=== PATIENT | female | born 1925 | race Asian ===

== ENCOUNTER 2017-01-10 13:27 | Emergency (ER) | payer OTHER ==
[~2017-01-10] VITALS: Ht 152.4 cm; Wt 70.0 kg
[~2017-01-10 13:27] MED LIST: AMLO10TA55 PO; ATOR40TA28 PO; FERR-72 PO; FURO20 PO; HYDR-2924 PO; LINA5TAB PO; LOSA25TA21 PO; METO50 PO; MONT10TA21 PO; NITR0.4T50 SL; PANT20TA PO; RANO500T3 PO; ROFL500T PO
[2017-01-10 13:42] LABS: GLUCOSE,POINT OF CARE 199 MG/DL (70-110)
[2017-01-10] MEDS ORDERED: AMLO-512 PO (13:45)
[2017-01-10] MEDS ORDERED: DSS100 PO (13:45)
[2017-01-10] MEDS ORDERED: OMEP20 PO (13:45)
[2017-01-10] MEDS ORDERED: CILO100T PO (13:45)
[2017-01-10] MEDS ORDERED: FLUT1AER IH (13:45)
[2017-01-10] MEDS ORDERED: LEVO2.5S4 PO (13:45)
[2017-01-10] MEDS ORDERED: CLOP75 PO (13:45)
[2017-01-10 15:28] LABS: BASOPHILS % (AUTO) 0.2 % (0.0-2.0); EOSINOPHILS % (AUTO) 0.8 % (1.0-6.0); HEMATOCRIT 24.2 % (36-46); HEMOGLOBIN 8.2 g/dL (12.0-16.0); LYMPHOCYTES # (AUTO) 0.8 K/uL (1.0-4.8); MEAN CORPUSCULAR HEMOGLOBIN 33.9 pg (26.0-34.0); MEAN CORPUSCULAR HGB CONC 33.8 G/dL (31.0-37.0); MEAN CORPUSCULAR VOLUME 100 fL (80-100); MONOCYTES # (AUTO) 0.6 K/uL (0.1-1.0); MONOCYTES % (AUTO) 7.2 % (2.0-9.0); NEUTROPHILS # (AUTO) 6.9 K/uL (1.8-7.7); NEUTROPHILS % (AUTO) 81.8 % (40.0-70.0); PLATELET COUNT (AUTO) 221 K/uL (150-450); RED BLOOD CELL COUNT(AUTO) 2.41 MIL/uL (4.00-5.20); RED CELL DISTRIBUTION WIDTH 16.9 % (11.5-14.5); WHITE BLOOD COUNT (AUTO) 8.5 K/uL (4.5-11.0)
[2017-01-10 15:32] LABS: ANION GAP 15 mmol/L (8-16); CALCIUM, TOTAL 8.5 mg/dL (8.8-10.5); CARBON DIOXIDE 18 mmol/L (22-29); CHLORIDE 105 mmol/L (98-107); CREATININE 2.08 mg/dL (0.60-1.30); GLOMERULAR FILTR. RATE CALC 22 mL/min (>60); POTASSIUM 5.2 mmol/L (3.5-5.1); SODIUM SERUM 138 mmol/L (136-145); UREA NITROGEN, BLOOD 33 mg/dL (7-18)
[2017-01-10 15:39] LABS: ALANINE AMINOTRANSFERASE 43 U/L (12-78); ALBUMIN 3.3 g/dL (3.4-5.0); ASPARTATE AMINOTRANSFERASE 35 U/L (15-37); BILIRUBIN,TOTAL 0.3 mg/dL (0.1-1.0); CREATINE KINASE, TOTAL 51 U/L (26-192); TOTAL PROTEIN, SERUM 7.5 g/dL (6.4-8.2)
[2017-01-10 15:53] LABS: B-TYPE NATRIURETIC PEPTIDE 430 pg/mL (0-100)
[2017-01-10 15:56] LABS: APPEARANCE,URINE CLEAR (CLEAR); GLUCOSE, URINE (UA) NEGATIVE (NEGATIVE); KETONES,URINE NEGATIVE (NEGATIVE); LEUKOCYTE ESTERASE ,URINE NEGATIVE (NEGATIVE); OCCULT BLOOD,URINE NEGATIVE (NEGATIVE); PH,URINE 5.5 (5.0-8.0); PROTEIN,URINE POS 1+ (NEGATIVE)
[2017-01-10 16:07] LABS: ADD UA MICROSCOPIC YES; RBC,URINE None Seen /HPF (0-2); WBC,URINE None Seen /HPF (0-5)
[2017-01-10 16:08] LABS: SQUAMOUS EPITHELIAL CELL,UR Few /LPF (None Seen)
[2017-01-10 16:27] LABS: RBC MORPHOLOGY COMMENT ABNORMAL RBC MORPH
[2017-01-10] MEDS ORDERED: FUROSEMIDE 40 MG/4 ML VIAL IVP ONE (16:30)
[2017-01-10 16:52] VITALS: BP 122/51
== END 2017-01-10 17:13 | disposition home or self-care (01) ==
LOC: EMS 13:29
DX: D64.9 Anemia, unspecified (principal); N28.9 Disorder of kidney and ureter, unspecified; E11.9 Type 2 diabetes mellitus without complications; I11.0 Hypertensive heart disease with heart failure; I50.9 Heart failure, unspecified; I48.91 Unspecified atrial fibrillation; E78.00 Pure hypercholesterolemia, unspecified; Z95.0 Presence of cardiac pacemaker; Z95.1 Presence of aortocoronary bypass graft
CPT/HCPCS: 36415; 80053; 81001; 82550; 82962; 83880; 84484; 85025; 93005; 96374; 99285; J1940

== ENCOUNTER 2017-02-13 14:15 | Inpatient (IN) | payer OTHER ==
[~2017-02-13] VITALS: Ht 152.4 cm; Wt 48.2 kg
[2017-02-13] VITALS (19 sets, daily range): BP systolic 128–156; BP diastolic 55–84
[~2017-02-13 14:15] MED LIST changes: +AMLO-512 PO; -AMLO10TA55 PO; +CILO100T PO; +CLOP75 PO; +DSS100 PO; -FERR-72 PO; +FLUT1AER IH; +LEVO2.5S4 PO; -MONT10TA21 PO; +OMEP20 PO; -PANT20TA PO; -ROFL500T PO
[2017-02-13 14:32] LABS: GLUCOSE,POINT OF CARE 163 MG/DL (70-110)
[2017-02-13 14:42] LABS: BASOPHILS % (AUTO) 0.1 % (0.0-2.0); EOSINOPHILS % (AUTO) 0.5 % (1.0-6.0); LYMPHOCYTES # (AUTO) 0.9 K/uL (1.0-4.8); LYMPHOCYTES % (AUTO) 11.8 % (22.0-44.0); MEAN CORPUSCULAR HEMOGLOBIN 34.2 pg (26.0-34.0); MEAN CORPUSCULAR VOLUME 101 fL (80-100); MONOCYTES # (AUTO) 0.6 K/uL (0.1-1.0); MONOCYTES % (AUTO) 7.4 % (2.0-9.0); NEUTROPHILS # (AUTO) 6.2 K/uL (1.8-7.7); NEUTROPHILS % (AUTO) 80.2 % (40.0-70.0); PLATELET COUNT (AUTO) 221 K/uL (150-450); RED BLOOD CELL COUNT(AUTO) 1.69 MIL/uL (4.00-5.20); RED CELL DISTRIBUTION WIDTH 16.9 % (11.5-14.5); WHITE BLOOD COUNT (AUTO) 7.7 K/uL (4.5-11.0)
[2017-02-13 14:49] LABS: HEMOGLOBIN 5.8 g/dL (12.0-16.0)
[2017-02-13 14:51] LABS: ANION GAP 10 mmol/L (8-16); CALCIUM, TOTAL 9.3 mg/dL (8.8-10.5); CARBON DIOXIDE 25 mmol/L (22-29); CHLORIDE 102 mmol/L (98-107); CREATININE 2.34 mg/dL (0.60-1.30); GLOMERULAR FILTR. RATE CALC 20 mL/min (>60); POTASSIUM 4.4 mmol/L (3.5-5.1); SODIUM SERUM 137 mmol/L (136-145); UREA NITROGEN, BLOOD 43 mg/dL (7-18)
[2017-02-13 14:52] LABS: INR 0.9 (0.9-1.1); PROTHROMBIN TIME 9.7 SEC (9.4-11.6)
[2017-02-13 14:56] LABS: ALANINE AMINOTRANSFERASE 19 U/L (12-78); ALBUMIN 3.1 g/dL (3.4-5.0); ASPARTATE AMINOTRANSFERASE 17 U/L (15-37); BILIRUBIN,TOTAL 0.2 mg/dL (0.1-1.0); CREATINE KINASE, TOTAL 34 U/L (26-192)
[2017-02-13 14:59] LABS: RBC MORPHOLOGY COMMENT ABNORMAL RBC MORPH
[2017-02-13 15:01] LABS: B-TYPE NATRIURETIC PEPTIDE 310 pg/mL (0-100)
[2017-02-13] MEDS ORDERED: ONDANSETRON HCL 4 MG/2 ML VIAL IVP ONE (15:45)
[2017-02-13] MEDS ORDERED: MORPHINE SULFATE 2 MG/ML SYRINGE IVP ONE ×2 (15:45→16:30)
[2017-02-13] MEDS ORDERED: NITROGLYCERIN 2% (1 GM=INCH) PACKET TP ONE (16:30)
[2017-02-13] MEDS ORDERED: SODIUM CHLORIDE 0.9% 250 ML IV ONE ×2 (16:44→23:11)
[2017-02-13] MEDS ORDERED: 0.9% SODIUM CHLORIDE 10 ML SYRINGE IVP PRN (17:15)
[2017-02-13] MEDS ORDERED: ONDANSETRON HCL 4 MG/2 ML VIAL IVP PRN (17:15)
[2017-02-13] MEDS ORDERED: ACETAMINOPHEN 325 MG TABLET PO PRN (17:15)
[2017-02-13] MEDS ORDERED: PANTOPRAZOLE SODIUM 40 MG/VIAL IVP ONE (17:15)
[2017-02-14] MEDS ORDERED: FUROSEMIDE 20 MG/2 ML VIAL IVP ONE ×2 (00:30→01:15)
[2017-02-14] MEDS ORDERED: NITROGLYCERIN 0.4 MG SUBLINGUAL TABLET #25 SL PRN (00:30)
[2017-02-14] MEDS ORDERED: 0.9% SODIUM CHLORIDE 5 ML NEB SOLUTION NEB ONE (01:18)
[2017-02-14] MEDS: ALBUTEROL SULFATE 2.5 MG/0.5 ML NEB SOLUTION NEB SCH ×2 (01:24→07:28)
[2017-02-14] MEDS: IPRATROPIUM BROMIDE 0.5 MG/2.5 ML NEB SOLUTION NEB SCH ×5 (01:24→22:55)
[2017-02-14 01:47] LABS: ABG BASE EXCESS -5.2 mmol/L (-2.0-3.0); ABG HCO3 20.2 mmol/L (22.0-26.0); ABG OXYHEMOGLOBIN 98.5 % (94.0-100.0); ABG PCO2 46 mmHg (35-45); ABG PH 7.289 (7.35-7.450); TEMPERATURE, FAHRENHEIT, BG 97.7 FAHREN (96.0-98.6)
[2017-02-14 01:48] LABS: ALLEN TEST, BLOOD GAS POSATIVE
[2017-02-14 04:22] VITALS: BP 135/59
[2017-02-14] MEDS ORDERED: CILOSTAZOL 100 MG TABLET PO SCH (06:30)
[2017-02-14 06:54] LABS: ALBUMIN 2.9 g/dL (3.4-5.0); BILIRUBIN,TOTAL 0.6 mg/dL (0.1-1.0); CALCIUM, TOTAL 9.3 mg/dL (8.8-10.5); CREATININE 2.29 mg/dL (0.60-1.30); POTASSIUM 4.9 mmol/L (3.5-5.1)
[2017-02-14 07:02] LABS: BASOPHILS % (AUTO) 0.2 % (0.0-2.0); EOSINOPHILS % (AUTO) 0.1 % (1.0-6.0); HEMATOCRIT 31.4 % (36-46); HEMOGLOBIN 10.6 g/dL (12.0-16.0); LYMPHOCYTES # (AUTO) 0.4 K/uL (1.0-4.8); MEAN CORPUSCULAR HEMOGLOBIN 31.9 pg (26.0-34.0); MEAN CORPUSCULAR HGB CONC 33.8 G/dL (31.0-37.0); MEAN CORPUSCULAR VOLUME 94 fL (80-100); MONOCYTES % (AUTO) 6.7 % (2.0-9.0); NEUTROPHILS # (AUTO) 12.9 K/uL (1.8-7.7); PLATELET COUNT (AUTO) 199 K/uL (150-450); RED BLOOD CELL COUNT(AUTO) 3.33 MIL/uL (4.00-5.20); RED CELL DISTRIBUTION WIDTH 21.1 % (11.5-14.5); WHITE BLOOD COUNT (AUTO) 14.4 K/uL (4.5-11.0)
[2017-02-14 07:41] VITALS: BP 131/53
[2017-02-14 08:06] LABS: RBC MORPHOLOGY COMMENT ABNORMAL RBC MORPH
[2017-02-14] MEDS: FLUTICASONE/VILANTEROL 100-25 MCG/INH INHALER [14] IH SCH (08:48)
[2017-02-14] MEDS: AmLODIPine BESYLATE 10 MG TABLET PO SCH (08:49)
[2017-02-14] MEDS: FUROSEMIDE 20 MG TABLET PO SCH (08:49)
[2017-02-14] MEDS: LOSARTAN POTASSIUM 25 MG TABLET PO SCH (08:49)
[2017-02-14] MEDS: OMEPRAZOLE 20 MG CAPSULE PO SCH (08:50)
[2017-02-14] MEDS: LinaGLIPtin 5 MG TABLET PO SCH (08:50)
[2017-02-14] MEDS: RANOLAZINE 500 MG SR TABLET PO SCH ×2 (08:50→20:53)
[2017-02-14] MEDS ORDERED: HydrALAZINE HCL 50 MG TABLET PO SCH (09:00)
[2017-02-14] MEDS ORDERED: METOPROLOL TARTRATE 50 MG TABLET PO SCH ×2 (09:00→21:00)
[2017-02-14 10:00] LABS: ABG A-A DIFF O2 154.3 mmHg (10-20.0); ABG BASE EXCESS -6.3 mmol/L (-2.0-3.0); ABG HCO3 19.5 mmol/L (22.0-26.0); ABG OXYHEMOGLOBIN 95.3 % (94.0-100.0); ABG PCO2 42 mmHg (35-45); ABG PH 7.295 (7.35-7.450); TEMPERATURE, FAHRENHEIT, BG 97.6 FAHREN (96.0-98.6)
[2017-02-14 10:06] LABS: ALLEN TEST, BLOOD GAS POSITIVE; IPAP, BG 15 cm H2O
[2017-02-14 11:45] VITALS: BP 137/54
[2017-02-14 16:17] VITALS: BP 143/60
[2017-02-14] MEDS ORDERED: LEVALBUTEROL HCL 0.63 MG/3 ML NEB SOLUTION NEB PRN (16:45)
[2017-02-14] MEDS: LEVALBUTEROL HCL 0.63 MG/3 ML NEB SOLUTION NEB SCH ×2 (19:41→22:54)
[2017-02-14 19:50] VITALS: BP 154/63
[2017-02-14] MEDS: ATORVASTATIN CALCIUM 40 MG TABLET PO SCH (20:59)
[2017-02-14] MEDS ORDERED: ATORVASTATIN CALCIUM 40 MG TABLET PO SCH (21:00)
[2017-02-14 21:45] VITALS: BP 168/76
[2017-02-15 00:08] VITALS: BP 145/64
[2017-02-15] MEDS: IPRATROPIUM BROMIDE 0.5 MG/2.5 ML NEB SOLUTION NEB SCH ×6 (02:45→23:11)
[2017-02-15] MEDS: LEVALBUTEROL HCL 0.63 MG/3 ML NEB SOLUTION NEB SCH ×4 (02:45→10:31)
[2017-02-15 04:00] VITALS: BP 148/61
[2017-02-15 05:46] LABS: BASOPHILS % (AUTO) 0.3 % (0.0-2.0); EOSINOPHILS % (AUTO) 0.2 % (1.0-6.0); HEMATOCRIT 29.9 % (36-46); HEMOGLOBIN 10.2 g/dL (12.0-16.0); LYMPHOCYTES # (AUTO) 0.6 K/uL (1.0-4.8); MEAN CORPUSCULAR HEMOGLOBIN 33.5 pg (26.0-34.0); MEAN CORPUSCULAR HGB CONC 34.3 G/dL (31.0-37.0); MEAN CORPUSCULAR VOLUME 98 fL (80-100); MONOCYTES # (AUTO) 0.9 K/uL (0.1-1.0); NEUTROPHILS # (AUTO) 10.8 K/uL (1.8-7.7); PLATELET COUNT (AUTO) 181 K/uL (150-450); RED BLOOD CELL COUNT(AUTO) 3.06 MIL/uL (4.00-5.20); RED CELL DISTRIBUTION WIDTH 20.6 % (11.5-14.5); WHITE BLOOD COUNT (AUTO) 12.3 K/uL (4.5-11.0)
[2017-02-15 06:08] LABS: ALBUMIN 2.5 g/dL (3.4-5.0); BILIRUBIN,TOTAL 0.6 mg/dL (0.1-1.0); CALCIUM, TOTAL 9.1 mg/dL (8.8-10.5); CHOL/HDL RATIO 1.6 (3.9-5.7); CREATININE 1.98 mg/dL (0.60-1.30); MAGNESIUM 2.4 mg/dL (1.80-2.40); PHOSPHORUS 5.3 mg/dL (2.5-4.9); POTASSIUM 4.6 mmol/L (3.5-5.1); THYROID STIMULATING HORMONE 0.89 uIU/mL (0.36-3.74)
[2017-02-15 06:41] LABS: NEUTROPHILS % (AUTO) 87.5 % (40.0-70.0)
[2017-02-15 08:00] VITALS: BP 150/60
[2017-02-15 08:38] LABS: HEMOGLOBIN A1C 5.8 % (4.5-6.2)
[2017-02-15] MEDS: RANOLAZINE 500 MG SR TABLET PO SCH ×2 (09:00→20:32)
[2017-02-15] MEDS: LinaGLIPtin 5 MG TABLET PO SCH (09:00)
[2017-02-15] MEDS: FUROSEMIDE 20 MG TABLET PO SCH (09:00)
[2017-02-15] MEDS: LOSARTAN POTASSIUM 25 MG TABLET PO SCH (09:00)
[2017-02-15] MEDS: AmLODIPine BESYLATE 10 MG TABLET PO SCH (09:00)
[2017-02-15] MEDS: OMEPRAZOLE 20 MG CAPSULE PO SCH (09:00)
[2017-02-15] MEDS: ISOSORBIDE MONONITRATE 30 MG ER TABLET PO SCH (09:00)
[2017-02-15 09:16] LABS: ABG A-A DIFF O2 111.8 mmHg (10-20.0); ABG BASE EXCESS -2.7 mmol/L (-2.0-3.0); ABG HCO3 22.5 mmol/L (22.0-26.0); ABG OXYHEMOGLOBIN 90.1 % (94.0-100.0); ABG PCO2 35 mmHg (35-45); ABG PH 7.415 (7.35-7.450); TEMPERATURE, FAHRENHEIT, BG 98.6 FAHREN (96.0-98.6)
[2017-02-15 09:17] LABS: ALLEN TEST, BLOOD GAS Positive; IPAP, BG 12 cm H2O
[2017-02-15 09:56] LABS: RBC MORPHOLOGY COMMENT ABNORMAL RBC MORPH
[2017-02-15] MEDS ORDERED: ACETAMINOPHEN 325 MG TABLET PO PRN (11:15)
[2017-02-15 11:35] VITALS: BP 152/67
[2017-02-15] MEDS: FLUTICASONE/VILANTEROL 100-25 MCG/INH INHALER [14] IH SCH (11:53)
[2017-02-15] MEDS: METOPROLOL TARTRATE 50 MG TABLET PO SCH ×2 (11:58→16:57)
[2017-02-15] MEDS ORDERED: MethylPREDNISolone SOD SUCC 125 MG/2 ML VIAL IVP ONE (12:15)
[2017-02-15] MEDS ORDERED: MORPHINE SULFATE 2 MG/ML SYRINGE IVP PRN (12:15)
[2017-02-15 15:28] VITALS: BP 144/63
[2017-02-15] MEDS: MethylPREDNISolone SOD SUCC 40 MG/ML VIAL IVP SCH ×2 (17:03→23:17)
[2017-02-15] MEDS: ATORVASTATIN CALCIUM 40 MG TABLET PO SCH (20:33)
[2017-02-16] VITALS (7 sets, daily range): BP systolic 120–158; BP diastolic 51–66
[2017-02-16] MEDS: IPRATROPIUM BROMIDE 0.5 MG/2.5 ML NEB SOLUTION NEB SCH ×6 (02:59→23:24)
[2017-02-16] MEDS: METOPROLOL TARTRATE 50 MG TABLET PO SCH ×3 (05:41→17:36)
[2017-02-16 06:16] LABS: EOSINOPHILS % (AUTO) 0 % (1.0-6.0); HEMOGLOBIN 10.7 g/dL (12.0-16.0); LYMPHOCYTES # (AUTO) 0.5 K/uL (1.0-4.8); LYMPHOCYTES % (AUTO) 7.4 % (22.0-44.0); MEAN CORPUSCULAR HEMOGLOBIN 32.3 pg (26.0-34.0); MEAN CORPUSCULAR HGB CONC 33.5 G/dL (31.0-37.0); MEAN CORPUSCULAR VOLUME 96 fL (80-100); MONOCYTES # (AUTO) 0.1 K/uL (0.1-1.0); MONOCYTES % (AUTO) 0.9 % (2.0-9.0); NEUTROPHILS # (AUTO) 6.5 K/uL (1.8-7.7); PLATELET COUNT (AUTO) 193 K/uL (150-450); RED BLOOD CELL COUNT(AUTO) 3.33 MIL/uL (4.00-5.20); RED CELL DISTRIBUTION WIDTH 20.6 % (11.5-14.5); WHITE BLOOD COUNT (AUTO) 7.1 K/uL (4.5-11.0)
[2017-02-16 06:51] LABS: ALBUMIN 2.4 g/dL (3.4-5.0); BILIRUBIN,TOTAL 0.6 mg/dL (0.1-1.0); CALCIUM, TOTAL 8.8 mg/dL (8.8-10.5); MAGNESIUM 2.5 mg/dL (1.80-2.40); POTASSIUM 4.7 mmol/L (3.5-5.1); TOTAL PROTEIN, SERUM 6.5 g/dL (6.4-8.2)
[2017-02-16 07:03] LABS: NEUTROPHILS % (AUTO) 91.7 % (40.0-70.0); RBC MORPHOLOGY COMMENT ABNORMAL RBC MORPH
[2017-02-16] MEDS: MethylPREDNISolone SOD SUCC 40 MG/ML VIAL IVP SCH ×3 (08:35→23:27)
[2017-02-16] MEDS: FLUTICASONE/VILANTEROL 100-25 MCG/INH INHALER [14] IH SCH (08:35)
[2017-02-16] MEDS: FUROSEMIDE 20 MG TABLET PO SCH (08:41)
[2017-02-16] MEDS: LOSARTAN POTASSIUM 25 MG TABLET PO SCH (08:41)
[2017-02-16] MEDS: ISOSORBIDE MONONITRATE 30 MG ER TABLET PO SCH (08:41)
[2017-02-16] MEDS: LinaGLIPtin 5 MG TABLET PO SCH (08:42)
[2017-02-16] MEDS: AmLODIPine BESYLATE 10 MG TABLET PO SCH (08:42)
[2017-02-16] MEDS: OMEPRAZOLE 20 MG CAPSULE PO SCH (08:42)
[2017-02-16] MEDS: RANOLAZINE 500 MG SR TABLET PO SCH ×2 (08:42→20:09)
[2017-02-16] MEDS ORDERED: SODIUM CHLORIDE 0.9% 1,000 ML IV ONE (11:30)
[2017-02-16] MEDS ORDERED: SODIUM CHLORIDE 0.9% 0 ML IV ONE (11:35)
[2017-02-16] MEDS ORDERED: LEVO5TAB13 PO (12:39)
[2017-02-16 14:11] LABS: APPEARANCE,UNSPUN,BODY FLUID HAZY (CLEAR)
[2017-02-16 14:12] LABS: COLOR,BODY FLUID YELLOW (LT YELLOW)
[2017-02-16] MEDS: OXYGEN THERAPY IH SCH (19:45)
[2017-02-16] MEDS: ATORVASTATIN CALCIUM 40 MG TABLET PO SCH (20:09)
[2017-02-17] MEDS: IPRATROPIUM BROMIDE 0.5 MG/2.5 ML NEB SOLUTION NEB SCH ×6 (03:27→22:57)
[2017-02-17] MEDS: METOPROLOL TARTRATE 50 MG TABLET PO SCH ×3 (05:28→18:03)
[2017-02-17 05:42] VITALS: BP 125/58
[2017-02-17 07:10] LABS: EOSINOPHILS % (AUTO) 0 % (1.0-6.0); HEMATOCRIT 29.9 % (36-46); HEMOGLOBIN 10.1 g/dL (12.0-16.0); LYMPHOCYTES # (AUTO) 0.3 K/uL (1.0-4.8); LYMPHOCYTES % (AUTO) 4.2 % (22.0-44.0); MEAN CORPUSCULAR HEMOGLOBIN 32.1 pg (26.0-34.0); MEAN CORPUSCULAR HGB CONC 33.7 G/dL (31.0-37.0); MEAN CORPUSCULAR VOLUME 95 fL (80-100); MONOCYTES # (AUTO) 0.3 K/uL (0.1-1.0); MONOCYTES % (AUTO) 4.1 % (2.0-9.0); NEUTROPHILS # (AUTO) 7.3 K/uL (1.8-7.7); PLATELET COUNT (AUTO) 185 K/uL (150-450); RED BLOOD CELL COUNT(AUTO) 3.14 MIL/uL (4.00-5.20); RED CELL DISTRIBUTION WIDTH 20.5 % (11.5-14.5)
[2017-02-17 07:12] LABS: NEUTROPHILS % (AUTO) 91.7 % (40.0-70.0)
[2017-02-17] MEDS: OXYGEN THERAPY IH SCH ×2 (07:22→20:23)
[2017-02-17 07:27] VITALS: BP 154/75
[2017-02-17 07:35] LABS: ALBUMIN 2.3 g/dL (3.4-5.0); BILIRUBIN,TOTAL 0.5 mg/dL (0.1-1.0); CALCIUM, TOTAL 8.5 mg/dL (8.8-10.5); CREATININE 2.21 mg/dL (0.60-1.30); MAGNESIUM 2.8 mg/dL (1.80-2.40); POTASSIUM 5.3 mmol/L (3.5-5.1); TOTAL PROTEIN, SERUM 5.8 g/dL (6.4-8.2)
[2017-02-17] MEDS: MethylPREDNISolone SOD SUCC 40 MG/ML VIAL IVP SCH (08:13)
[2017-02-17] MEDS: LOSARTAN POTASSIUM 25 MG TABLET PO SCH (08:14)
[2017-02-17] MEDS: FLUTICASONE/VILANTEROL 100-25 MCG/INH INHALER [14] IH SCH (08:14)
[2017-02-17] MEDS: LinaGLIPtin 5 MG TABLET PO SCH (08:15)
[2017-02-17] MEDS: FUROSEMIDE 20 MG TABLET PO SCH (08:15)
[2017-02-17] MEDS: OMEPRAZOLE 20 MG CAPSULE PO SCH (08:15)
[2017-02-17] MEDS: RANOLAZINE 500 MG SR TABLET PO SCH ×2 (08:15→20:19)
[2017-02-17] MEDS: AmLODIPine BESYLATE 10 MG TABLET PO SCH (08:15)
[2017-02-17] MEDS: ISOSORBIDE MONONITRATE 30 MG ER TABLET PO SCH (10:09)
[2017-02-17] MEDS ORDERED: AMIODARONE HCL 50 MG in DEXTROSE 5%-WATER 97 ML IV ONE (10:30)
[2017-02-17] MEDS ORDERED: AMIODARONE HCL 360 MG in DEXTROSE 5%-WATER 242.8 ML IV ONE (10:30)
[2017-02-17] MEDS ORDERED: AMIODARONE HCL 50 MG in DEXTROSE 5%-WATER 99 ML IV ONE (10:35)
[2017-02-17] MEDS ORDERED: SODIUM CHLORIDE 0.9% 0 ML IV ONE (10:47)
[2017-02-17 12:20] VITALS: BP 121/66
[2017-02-17 13:07] LABS: TOTAL PROTEIN,BODY FLUID,REF 1.7 g/dL
[2017-02-17 15:33] VITALS: BP 133/68
[2017-02-17] MEDS: PredniSONE 20 MG TABLET PO SCH (16:16)
[2017-02-17] MEDS ORDERED: AMIODARONE HCL 540 MG in DEXTROSE 5%-WATER 239.2 ML IV ONE (16:30)
[2017-02-17] MEDS: ATORVASTATIN CALCIUM 40 MG TABLET PO SCH (20:20)
[2017-02-17 20:45] VITALS: BP 145/63
[2017-02-17 23:36] VITALS: BP 151/75
[2017-02-18] MEDS: IPRATROPIUM BROMIDE 0.5 MG/2.5 ML NEB SOLUTION NEB SCH ×6 (04:02→23:04)
[2017-02-18 05:02] VITALS: BP 142/58
[2017-02-18] MEDS: METOPROLOL TARTRATE 50 MG TABLET PO SCH ×3 (05:33→17:14)
[2017-02-18 06:14] LABS: BASOPHILS % (AUTO) 0.1 % (0.0-2.0); EOSINOPHILS % (AUTO) 0 % (1.0-6.0); HEMATOCRIT 30.4 % (36-46); HEMOGLOBIN 10.2 g/dL (12.0-16.0); LYMPHOCYTES # (AUTO) 0.3 K/uL (1.0-4.8); LYMPHOCYTES % (AUTO) 3.3 % (22.0-44.0); MEAN CORPUSCULAR HEMOGLOBIN 31.9 pg (26.0-34.0); MEAN CORPUSCULAR HGB CONC 33.7 G/dL (31.0-37.0); MEAN CORPUSCULAR VOLUME 95 fL (80-100); MONOCYTES # (AUTO) 0.4 K/uL (0.1-1.0); MONOCYTES % (AUTO) 3.9 % (2.0-9.0); NEUTROPHILS # (AUTO) 9.1 K/uL (1.8-7.7); PLATELET COUNT (AUTO) 191 K/uL (150-450); RED CELL DISTRIBUTION WIDTH 19.2 % (11.5-14.5); WHITE BLOOD COUNT (AUTO) 9.8 K/uL (4.5-11.0)
[2017-02-18 06:37] LABS: ALBUMIN 2.4 g/dL (3.4-5.0); BILIRUBIN,TOTAL 0.5 mg/dL (0.1-1.0); CALCIUM, TOTAL 8.4 mg/dL (8.8-10.5); CREATININE 1.99 mg/dL (0.60-1.30); MAGNESIUM 2.8 mg/dL (1.80-2.40); POTASSIUM 5.3 mmol/L (3.5-5.1); TOTAL PROTEIN, SERUM 5.4 g/dL (6.4-8.2)
[2017-02-18 06:56] LABS: NEUTROPHILS % (AUTO) 92.7 % (40.0-70.0)
[2017-02-18 07:20] VITALS: BP 141/62
[2017-02-18] MEDS ORDERED: DEXTROSE 50%-WATER 25 GM/50 ML SYRINGE IVP PRN (07:30)
[2017-02-18] MEDS: OXYGEN THERAPY IH SCH ×2 (07:52→19:22)
[2017-02-18] MEDS: FLUTICASONE/VILANTEROL 100-25 MCG/INH INHALER [14] IH SCH (08:31)
[2017-02-18] MEDS: LOSARTAN POTASSIUM 25 MG TABLET PO SCH (08:31)
[2017-02-18] MEDS: ISOSORBIDE MONONITRATE 30 MG ER TABLET PO SCH (08:32)
[2017-02-18] MEDS: PredniSONE 20 MG TABLET PO SCH (08:32)
[2017-02-18] MEDS: FUROSEMIDE 20 MG TABLET PO SCH (08:32)
[2017-02-18] MEDS: RANOLAZINE 500 MG SR TABLET PO SCH ×2 (08:33→21:02)
[2017-02-18] MEDS: OMEPRAZOLE 20 MG CAPSULE PO SCH (08:33)
[2017-02-18] MEDS: LinaGLIPtin 5 MG TABLET PO SCH (08:33)
[2017-02-18] MEDS: AmLODIPine BESYLATE 10 MG TABLET PO SCH (08:33)
[2017-02-18] MEDS ORDERED: AMIODARONE HCL 750 MG in DEXTROSE 5%-WATER 485 ML IV SCH (11:00)
[2017-02-18 11:12] VITALS: BP 132/66
[2017-02-18] MEDS: INSULIN ASPART 100 UNITS/ML SQ PRN ×3 (11:42→21:04)
[2017-02-18] MEDS: AMIODARONE HCL 200 MG TABLET PO SCH ×3 (11:42→23:27)
[2017-02-18 15:36] VITALS: BP 152/64
[2017-02-18 17:58] LABS: GLUCOSE COMMENT 1 Received Meds; GLUCOSE,POINT OF CARE 270 MG/DL (70-110)
[2017-02-18 20:00] VITALS: BP 113/63
[2017-02-18] MEDS: ATORVASTATIN CALCIUM 40 MG TABLET PO SCH (21:03)
[2017-02-18 23:28] VITALS: BP 141/80
[2017-02-19] MEDS: IPRATROPIUM BROMIDE 0.5 MG/2.5 ML NEB SOLUTION NEB SCH ×6 (03:10→22:34)
[2017-02-19 04:55] VITALS: BP 144/78
[2017-02-19] MEDS: METOPROLOL TARTRATE 50 MG TABLET PO SCH ×3 (05:59→18:15)
[2017-02-19 06:08] LABS: GLUCOSE COMMENT 1 Received Meds; GLUCOSE,POINT OF CARE 323 MG/DL (70-110)
[2017-02-19 06:09] LABS: GLUCOSE COMMENT 1 Received Meds; GLUCOSE,POINT OF CARE 238 MG/DL (70-110)
[2017-02-19 06:09] LABS: GLUCOSE COMMENT 1 Received Meds; GLUCOSE,POINT OF CARE 253 MG/DL (70-110)
[2017-02-19 06:51] LABS: INR 0.9 (0.9-1.1); PROTHROMBIN TIME 9.7 SEC (9.4-11.6)
[2017-02-19 06:58] LABS: EOSINOPHILS % (AUTO) 0 % (1.0-6.0); HEMATOCRIT 33.8 % (36-46); HEMOGLOBIN 11.2 g/dL (12.0-16.0); LYMPHOCYTES # (AUTO) 0.4 K/uL (1.0-4.8); LYMPHOCYTES % (AUTO) 3.8 % (22.0-44.0); MEAN CORPUSCULAR HEMOGLOBIN 31.9 pg (26.0-34.0); MEAN CORPUSCULAR HGB CONC 33.2 G/dL (31.0-37.0); MEAN CORPUSCULAR VOLUME 96 fL (80-100); MONOCYTES # (AUTO) 0.8 K/uL (0.1-1.0); MONOCYTES % (AUTO) 6.9 % (2.0-9.0); NEUTROPHILS # (AUTO) 10.5 K/uL (1.8-7.7); PLATELET COUNT (AUTO) 175 K/uL (150-450); RED BLOOD CELL COUNT(AUTO) 3.52 MIL/uL (4.00-5.20); WHITE BLOOD COUNT (AUTO) 11.7 K/uL (4.5-11.0)
[2017-02-19] MEDS: OXYGEN THERAPY IH SCH ×2 (07:04→20:13)
[2017-02-19 07:06] LABS: NEUTROPHILS % (AUTO) 89.4 % (40.0-70.0)
[2017-02-19 07:15] LABS: ALBUMIN 2.2 g/dL (3.4-5.0); BILIRUBIN,TOTAL 0.4 mg/dL (0.1-1.0); CREATININE 1.79 mg/dL (0.60-1.30); MAGNESIUM 2.7 mg/dL (1.80-2.40); POTASSIUM 4.8 mmol/L (3.5-5.1); TOTAL PROTEIN, SERUM 5.7 g/dL (6.4-8.2)
[2017-02-19 07:27] VITALS: BP 127/61
[2017-02-19] MEDS: AMIODARONE HCL 200 MG TABLET PO SCH ×2 (08:00→15:02)
[2017-02-19 08:48] LABS: RBC MORPHOLOGY COMMENT ABNORMAL RBC MORPH
[2017-02-19] MEDS: RANOLAZINE 500 MG SR TABLET PO SCH ×2 (09:00→20:12)
[2017-02-19] MEDS: FUROSEMIDE 20 MG TABLET PO SCH (09:00)
[2017-02-19] MEDS ORDERED: SODIUM CHLORIDE 0.9% 1,000 ML IV ONE (11:15)
[2017-02-19 11:40] VITALS: BP 147/63
[2017-02-19] MEDS ORDERED: METOCLOPRAMIDE HCL 5 MG/ML 2 ML VIAL IVP ONE (12:00)
[2017-02-19] MEDS ORDERED: ONDANSETRON HCL 4 MG/2 ML VIAL IVP ONE (12:00)
[2017-02-19] MEDS ORDERED: PHENYLEPHRINE HCL 10 MG/ML VIAL IVP ONE (12:00)
[2017-02-19] MEDS ORDERED: MIDAZOLAM HCL 2 MG/2 ML VIAL IVP ONE (12:00)
[2017-02-19] MEDS ORDERED: FentaNYL CITRATE-PF 100 MCG/2 ML VIAL IVP ONE (12:00)
[2017-02-19 14:28] LABS: GLUCOSE COMMENT 1 FASTING; GLUCOSE,POINT OF CARE 183 MG/DL (70-110)
[2017-02-19] MEDS: DOCUSATE SODIUM 100 MG CAPSULE PO PRN (14:42)
[2017-02-19] MEDS: ISOSORBIDE MONONITRATE 30 MG ER TABLET PO SCH (14:43)
[2017-02-19] MEDS: AmLODIPine BESYLATE 10 MG TABLET PO SCH (14:43)
[2017-02-19] MEDS: FLUTICASONE/VILANTEROL 100-25 MCG/INH INHALER [14] IH SCH (14:43)
[2017-02-19] MEDS: OMEPRAZOLE 20 MG CAPSULE PO SCH (14:43)
[2017-02-19] MEDS: PredniSONE 20 MG TABLET PO SCH (14:44)
[2017-02-19] MEDS: LOSARTAN POTASSIUM 25 MG TABLET PO SCH (14:54)
[2017-02-19] MEDS: LinaGLIPtin 5 MG TABLET PO SCH (14:54)
[2017-02-19 16:09] VITALS: BP 145/60
[2017-02-19] MEDS: INSULIN ASPART 100 UNITS/ML SQ PRN ×2 (18:17→20:18)
[2017-02-19 20:10] VITALS: BP 135/49
[2017-02-19] MEDS: ATORVASTATIN CALCIUM 40 MG TABLET PO SCH (20:13)
[2017-02-20] VITALS (7 sets, daily range): BP systolic 126–169; BP diastolic 57–71
[2017-02-20] MEDS: AMIODARONE HCL 200 MG TABLET PO SCH ×3 (00:05→15:52)
[2017-02-20] MEDS: IPRATROPIUM BROMIDE 0.5 MG/2.5 ML NEB SOLUTION NEB SCH ×6 (02:38→22:54)
[2017-02-20 03:57] LABS: GLUCOSE COMMENT 1 Received Meds; GLUCOSE,POINT OF CARE 270 MG/DL (70-110)
[2017-02-20 03:57] LABS: GLUCOSE COMMENT 1 Received Meds; GLUCOSE,POINT OF CARE 270 MG/DL (70-110)
[2017-02-20] MEDS: METOPROLOL TARTRATE 50 MG TABLET PO SCH ×3 (06:08→17:38)
[2017-02-20] MEDS: INSULIN ASPART 100 UNITS/ML SQ PRN ×4 (06:11→20:34)
[2017-02-20 06:15] LABS: EOSINOPHILS % (AUTO) 0 % (1.0-6.0); HEMATOCRIT 35.8 % (36-46); LYMPHOCYTES # (AUTO) 0.4 K/uL (1.0-4.8); LYMPHOCYTES % (AUTO) 3.5 % (22.0-44.0); MEAN CORPUSCULAR HEMOGLOBIN 31.8 pg (26.0-34.0); MEAN CORPUSCULAR HGB CONC 33.5 G/dL (31.0-37.0); MEAN CORPUSCULAR VOLUME 95 fL (80-100); MONOCYTES # (AUTO) 0.4 K/uL (0.1-1.0); MONOCYTES % (AUTO) 3.4 % (2.0-9.0); NEUTROPHILS # (AUTO) 9.6 K/uL (1.8-7.7); PLATELET COUNT (AUTO) 199 K/uL (150-450); RED BLOOD CELL COUNT(AUTO) 3.77 MIL/uL (4.00-5.20); RED CELL DISTRIBUTION WIDTH 18.5 % (11.5-14.5); WHITE BLOOD COUNT (AUTO) 10.3 K/uL (4.5-11.0)
[2017-02-20 06:27] LABS: ALBUMIN 2.5 g/dL (3.4-5.0); BILIRUBIN,TOTAL 0.5 mg/dL (0.1-1.0); CALCIUM, TOTAL 8.7 mg/dL (8.8-10.5); CREATININE 1.76 mg/dL (0.60-1.30); MAGNESIUM 2.8 mg/dL (1.80-2.40); POTASSIUM 5.5 mmol/L (3.5-5.1); TOTAL PROTEIN, SERUM 6.1 g/dL (6.4-8.2)
[2017-02-20 06:55] LABS: NEUTROPHILS % (AUTO) 93.1 % (40.0-70.0)
[2017-02-20] MEDS ORDERED: SODIUM POLYSTYRENE SULFONATE 15 GM/60 ML SUSPENSION BOTTLE PO ONE (08:30)
[2017-02-20] MEDS: PredniSONE 20 MG TABLET PO SCH (08:41)
[2017-02-20] MEDS: FLUTICASONE/VILANTEROL 100-25 MCG/INH INHALER [14] IH SCH (08:41)
[2017-02-20] MEDS: OXYGEN THERAPY IH SCH ×2 (08:41→18:54)
[2017-02-20] MEDS: AmLODIPine BESYLATE 10 MG TABLET PO SCH (08:42)
[2017-02-20] MEDS: ISOSORBIDE MONONITRATE 30 MG ER TABLET PO SCH (08:42)
[2017-02-20] MEDS: FLUCONAZOLE 100 MG TABLET PO SCH (08:42)
[2017-02-20] MEDS: RANOLAZINE 500 MG SR TABLET PO SCH ×2 (08:42→20:27)
[2017-02-20] MEDS: OMEPRAZOLE 20 MG CAPSULE PO SCH (08:42)
[2017-02-20] MEDS: FUROSEMIDE 20 MG TABLET PO SCH (08:42)
[2017-02-20] MEDS: LinaGLIPtin 5 MG TABLET PO SCH (08:42)
[2017-02-20 09:29] LABS: RBC MORPHOLOGY COMMENT ABNORMAL RBC MORPH
[2017-02-20 13:00] LABS: CALCIUM, TOTAL 8.4 mg/dL (8.8-10.5); CREATININE 1.69 mg/dL (0.60-1.30); POTASSIUM 4.8 mmol/L (3.5-5.1)
[2017-02-20 17:03] LABS: GLUCOSE COMMENT 1 Received Meds; GLUCOSE,POINT OF CARE 263 MG/DL (70-110)
[2017-02-20 19:27] LABS: GLUCOSE,POINT OF CARE 238 MG/DL (70-110)
[2017-02-20 19:33] LABS: GLUCOSE COMMENT 1 Received Meds; GLUCOSE,POINT OF CARE 419 MG/DL (70-110)
[2017-02-20] MEDS: DOCUSATE SODIUM 100 MG CAPSULE PO PRN (20:27)
[2017-02-20] MEDS: ATORVASTATIN CALCIUM 40 MG TABLET PO SCH (20:27)
[2017-02-21] MEDS: AMIODARONE HCL 200 MG TABLET PO SCH ×3 (00:16→16:09)
[2017-02-21] MEDS: IPRATROPIUM BROMIDE 0.5 MG/2.5 ML NEB SOLUTION NEB SCH ×6 (02:42→23:32)
[2017-02-21 02:58] LABS: GLUCOSE COMMENT 1 Received Meds; GLUCOSE,POINT OF CARE 392 MG/DL (70-110)
[2017-02-21 04:14] VITALS: BP 138/52
[2017-02-21] MEDS: METOPROLOL TARTRATE 50 MG TABLET PO SCH ×3 (05:47→17:47)
[2017-02-21 05:51] LABS: EOSINOPHILS % (AUTO) 0 % (1.0-6.0); HEMATOCRIT 33.7 % (36-46); HEMOGLOBIN 11.4 g/dL (12.0-16.0); LYMPHOCYTES # (AUTO) 0.4 K/uL (1.0-4.8); LYMPHOCYTES % (AUTO) 3.7 % (22.0-44.0); MEAN CORPUSCULAR HEMOGLOBIN 31.2 pg (26.0-34.0); MEAN CORPUSCULAR HGB CONC 33.9 G/dL (31.0-37.0); MEAN CORPUSCULAR VOLUME 92 fL (80-100); MONOCYTES # (AUTO) 0.2 K/uL (0.1-1.0); MONOCYTES % (AUTO) 2.2 % (2.0-9.0); NEUTROPHILS # (AUTO) 8.9 K/uL (1.8-7.7); PLATELET COUNT (AUTO) 185 K/uL (150-450); RED BLOOD CELL COUNT(AUTO) 3.65 MIL/uL (4.00-5.20); RED CELL DISTRIBUTION WIDTH 18.4 % (11.5-14.5); WHITE BLOOD COUNT (AUTO) 9.5 K/uL (4.5-11.0)
[2017-02-21] MEDS: INSULIN ASPART 100 UNITS/ML SQ PRN ×4 (05:53→20:35)
[2017-02-21 06:52] LABS: GLUCOSE COMMENT 1 Received Meds; GLUCOSE,POINT OF CARE 324 MG/DL (70-110)
[2017-02-21 06:55] LABS: NEUTROPHILS % (AUTO) 94.1 % (40.0-70.0)
[2017-02-21 06:58] LABS: ALBUMIN 2.3 g/dL (3.4-5.0); BILIRUBIN,TOTAL 0.4 mg/dL (0.1-1.0); CALCIUM, TOTAL 8.2 mg/dL (8.8-10.5); CREATININE 1.73 mg/dL (0.60-1.30); MAGNESIUM 2.6 mg/dL (1.80-2.40); POTASSIUM 5.7 mmol/L (3.5-5.1); TOTAL PROTEIN, SERUM 5.6 g/dL (6.4-8.2)
[2017-02-21] MEDS ORDERED: 0.9% SODIUM CHLORIDE 5 ML NEB SOLUTION NEB ONE ×3 (07:39→14:49)
[2017-02-21 07:52] VITALS: BP 126/54
[2017-02-21] MEDS ORDERED: SODIUM POLYSTYRENE SULFONATE 15 GM/60 ML SUSPENSION BOTTLE PO ONE ×2 (08:00→08:30)
[2017-02-21 08:09] LABS: RBC MORPHOLOGY COMMENT ABNORMAL RBC MORPH
[2017-02-21] MEDS: FLUTICASONE/VILANTEROL 100-25 MCG/INH INHALER [14] IH SCH (08:46)
[2017-02-21] MEDS: OXYGEN THERAPY IH SCH ×2 (08:46→19:18)
[2017-02-21] MEDS: PredniSONE 20 MG TABLET PO SCH (08:46)
[2017-02-21] MEDS: RANOLAZINE 500 MG SR TABLET PO SCH ×2 (08:47→20:29)
[2017-02-21] MEDS: OMEPRAZOLE 20 MG CAPSULE PO SCH (08:47)
[2017-02-21] MEDS: AmLODIPine BESYLATE 10 MG TABLET PO SCH (08:47)
[2017-02-21] MEDS: ISOSORBIDE MONONITRATE 30 MG ER TABLET PO SCH (08:47)
[2017-02-21] MEDS: LinaGLIPtin 5 MG TABLET PO SCH (08:47)
[2017-02-21] MEDS: FUROSEMIDE 20 MG TABLET PO SCH (08:47)
[2017-02-21] MEDS: FLUCONAZOLE 100 MG TABLET PO SCH (08:47)
[2017-02-21 11:27] VITALS: BP 140/57
[2017-02-21] MEDS: LACTULOSE 20 GM/30 ML SOLUTION UDCUP PO PRN (14:25)
[2017-02-21 16:10] VITALS: BP 156/71
[2017-02-21 20:05] VITALS: BP 142/68
[2017-02-21 20:14] VITALS: BP 138/83
[2017-02-21] MEDS: ATORVASTATIN CALCIUM 40 MG TABLET PO SCH (20:29)
[2017-02-21] MEDS: DOCUSATE SODIUM 100 MG CAPSULE PO PRN (20:29)
[2017-02-22 00:23] VITALS: BP 142/63
[2017-02-22] MEDS: AMIODARONE HCL 200 MG TABLET PO SCH ×3 (00:24→15:55)
[2017-02-22] MEDS: IPRATROPIUM BROMIDE 0.5 MG/2.5 ML NEB SOLUTION NEB SCH ×4 (03:45→15:15)
[2017-02-22 04:51] VITALS: BP 156/66
[2017-02-22] MEDS: METOPROLOL TARTRATE 50 MG TABLET PO SCH ×3 (06:03→17:56)
[2017-02-22] MEDS: LACTULOSE 20 GM/30 ML SOLUTION UDCUP PO PRN (06:03)
[2017-02-22] MEDS: INSULIN ASPART 100 UNITS/ML SQ PRN ×3 (06:04→17:57)
[2017-02-22 06:25] LABS: EOSINOPHILS % (AUTO) 0 % (1.0-6.0); HEMATOCRIT 32.2 % (36-46); HEMOGLOBIN 10.9 g/dL (12.0-16.0); LYMPHOCYTES # (AUTO) 0.3 K/uL (1.0-4.8); LYMPHOCYTES % (AUTO) 2.8 % (22.0-44.0); MEAN CORPUSCULAR HEMOGLOBIN 31.6 pg (26.0-34.0); MEAN CORPUSCULAR HGB CONC 33.8 G/dL (31.0-37.0); MEAN CORPUSCULAR VOLUME 93 fL (80-100); MONOCYTES # (AUTO) 0.3 K/uL (0.1-1.0); MONOCYTES % (AUTO) 2.7 % (2.0-9.0); NEUTROPHILS # (AUTO) 10.6 K/uL (1.8-7.7); PLATELET COUNT (AUTO) 164 K/uL (150-450); RED BLOOD CELL COUNT(AUTO) 3.44 MIL/uL (4.00-5.20); RED CELL DISTRIBUTION WIDTH 18.2 % (11.5-14.5); WHITE BLOOD COUNT (AUTO) 11.2 K/uL (4.5-11.0)
[2017-02-22 06:50] LABS: NEUTROPHILS % (AUTO) 94.5 % (40.0-70.0)
[2017-02-22 07:01] LABS: ALBUMIN 2.3 g/dL (3.4-5.0); BILIRUBIN,TOTAL 0.3 mg/dL (0.1-1.0); CALCIUM, TOTAL 7.6 mg/dL (8.8-10.5); CREATININE 1.52 mg/dL (0.60-1.30); MAGNESIUM 2.3 mg/dL (1.80-2.40); POTASSIUM 3.2 mmol/L (3.5-5.1); TOTAL PROTEIN, SERUM 5.4 g/dL (6.4-8.2)
[2017-02-22 07:40] VITALS: BP 135/56
[2017-02-22] MEDS ORDERED: POTASSIUM CHLORIDE 20 MEQ ER TABLET PO ONE (08:00)
[2017-02-22] MEDS ORDERED: SODIUM PHOS/SODIUM BIPHOS 133 ML ENEMA PR ONE (08:00)
[2017-02-22] MEDS: OXYGEN THERAPY IH SCH (08:00)
[2017-02-22] MEDS ORDERED: BISACODYL 10 MG RECTAL RECTAL SUPPOSITORY PR ONE (08:00)
[2017-02-22 09:08] LABS: RBC MORPHOLOGY COMMENT ABNORMAL RBC MORPH
[2017-02-22] MEDS: FLUTICASONE/VILANTEROL 100-25 MCG/INH INHALER [14] IH SCH (09:10)
[2017-02-22] MEDS: FUROSEMIDE 20 MG TABLET PO SCH (09:10)
[2017-02-22] MEDS: AmLODIPine BESYLATE 10 MG TABLET PO SCH (09:10)
[2017-02-22] MEDS: ISOSORBIDE MONONITRATE 30 MG ER TABLET PO SCH (09:10)
[2017-02-22] MEDS: PredniSONE 20 MG TABLET PO SCH (09:10)
[2017-02-22] MEDS: OMEPRAZOLE 20 MG CAPSULE PO SCH (09:10)
[2017-02-22] MEDS: FLUCONAZOLE 100 MG TABLET PO SCH (09:11)
[2017-02-22] MEDS: LinaGLIPtin 5 MG TABLET PO SCH (09:11)
[2017-02-22] MEDS: RANOLAZINE 500 MG SR TABLET PO SCH (09:11)
[2017-02-22 11:59] VITALS: BP 122/56
[2017-02-22 15:49] VITALS: BP 131/69
[2017-02-22] MEDS ORDERED: ATOR40TA28 PO (17:08)
[2017-02-22] MEDS ORDERED: FLUC100T PO (17:09)
[2017-02-22] MEDS ORDERED: AMIO200T44 PO (17:09)
[2017-02-22] MEDS ORDERED: IPRNEB IH (17:12)
[2017-02-22] MEDS ORDERED: ISOS30TA6 PO (17:13)
[2017-02-22] MEDS ORDERED: METO50 PO (17:16)
[2017-02-22] MEDS ORDERED: PRED20 PO (17:17)
[2017-02-22] MEDS ORDERED: ACET-784 PO (17:17)
[2017-02-22] MEDS ORDERED: DSS100 PO (17:18)
[2017-02-22] MEDS ORDERED: INSNOV SQ (17:18)
[2017-02-22] MEDS ORDERED: LACT30L PO (17:19)
[2017-02-22 17:55] VITALS: BP 150/59
[2017-02-23 14:23] LABS: GLUCOSE COMMENT 1 Received Meds; GLUCOSE,POINT OF CARE 278 MG/DL (70-110)
[2017-02-23 14:23] LABS: GLUCOSE COMMENT 1 Received Meds; GLUCOSE,POINT OF CARE 320 MG/DL (70-110)
[2017-02-23 14:23] LABS: GLUCOSE COMMENT 1 Received Meds; GLUCOSE,POINT OF CARE 281 MG/DL (70-110)
[2017-02-23 14:24] LABS: GLUCOSE COMMENT 1 Received Meds; GLUCOSE,POINT OF CARE 340 MG/DL (70-110)
[2017-02-25 19:49] LABS: GLUCOSE COMMENT 1 Received Meds; GLUCOSE,POINT OF CARE 289 MG/DL (70-110)
[2017-02-25 19:49] LABS: GLUCOSE COMMENT 1 Received Meds; GLUCOSE,POINT OF CARE 330 MG/DL (70-110)
== END 2017-02-22 18:30 | DRG 377 ==
LOC: EMS 14:20 → 5S 17:21 → ICU 02-14 21:30 → 5S 02-15 10:10
PROVIDERS: ADMIT Family Medicine; ATTEND Family Medicine
PROC: 30233N1 Transfusion of Nonautologous Red Blood Cells into Peripheral Vein, Percutaneous Approach (ICD-10-PCS; 2017-02-13)
PROC: 5A09357 Assistance with Respiratory Ventilation, Less than 24 Consecutive Hours, Continuous Positive Airway Pressure (ICD-10-PCS; 2017-02-14)
PROC: 0DB68ZX Excision of Stomach, Via Natural or Artificial Opening Endoscopic, Diagnostic (ICD-10-PCS; principal; 2017-02-19 12:15)
DX: K92.2 Gastrointestinal hemorrhage, unspecified (principal); I21.4 Non-ST elevation (NSTEMI) myocardial infarction; J96.01 Acute respiratory failure with hypoxia; I47.2 Ventricular tachycardia; I50.31 Acute diastolic (congestive) heart failure; N18.4 Chronic kidney disease, stage 4 (severe); B37.81 Candidal esophagitis; E11.22 Type 2 diabetes mellitus with diabetic chronic kidney disease; N17.9 Acute kidney failure, unspecified; I13.0 Hypertensive heart and chronic kidney disease with heart failure and stage 1 through stage 4 chronic kidney disease, or unspecified chronic kidney disease; K92.1 Melena; E11.51 Type 2 diabetes mellitus with diabetic peripheral angiopathy without gangrene; I35.0 Nonrheumatic aortic (valve) stenosis; I73.9 Peripheral vascular disease, unspecified; D50.0 Iron deficiency anemia secondary to blood loss (chronic); E78.5 Hyperlipidemia, unspecified; E87.5 Hyperkalemia; E87.6 Hypokalemia; I25.10 Atherosclerotic heart disease of native coronary artery without angina pectoris; I25.2 Old myocardial infarction; I48.0 Paroxysmal atrial fibrillation; K44.9 Diaphragmatic hernia without obstruction or gangrene; Z95.3 Presence of xenogenic heart valve; Z95.1 Presence of aortocoronary bypass graft; Z95.0 Presence of cardiac pacemaker; Z87.11 Personal history of peptic ulcer disease; Z79.4 Long term (current) use of insulin; Z79.02 Long term (current) use of antithrombotics/antiplatelets
CPT/HCPCS: 32555; 36430; 71250; 76942; 82270; 82465; 82805; 82945; 82962; 83036; 83615; 83735; 83986; 84100; 84157; 84443; 86850; 86900; 86901; 86920; 87015; 87070; 87081; 87101; 87205; 88305; 88312; 89051; 93005; 93306; 93308; 94640; 94660; 96374; 96375; 96376; 97110; 97116; 97161; 97163; 97165; 97530; 99291; C9113; J0282; J1940; J2250; J2270; J2370; J2405; J2765; J2920; J2930; J3010; J7030; J7040; J7050; J7060; P9016